=== PATIENT | male | born 1980 | race Caucasian/White ===

== ENCOUNTER 2020-12-14 15:15 | Emergency (ER) | payer SELFPAY ==
[~2020-12-14] VITALS: Ht 182.9 cm; Wt 69.0 kg
[2020-12-14] MEDS ORDERED: NAPROXEN375 MG PO (16:45)
[2020-12-14] MEDS ORDERED: MEDDOSEPAK PO (16:45)
[2020-12-14 16:52] VITALS: BP 122/88
== END 2020-12-14 16:52 | disposition home or self-care (01) | DRG 558 ==
LOC: ED 15:15
DX: M77.8 Other enthesopathies, not elsewhere classified (principal); F17.290 Nicotine dependence, other tobacco product, uncomplicated